=== PATIENT | female | born 1995 | race Caucasian/White ===

== ENCOUNTER 2017-01-14 16:40 | Outpatient (CLI) | payer OTHER ==
[2017-01-14] MEDS ORDERED: ACETAMINOPHEN 325 MG TAB PO PRN (17:45)
[2017-01-14] MEDS ORDERED: CYCLOBENZAPRINE HCL 10 MG TAB PO ONE (18:00)
[2017-01-14 18:45] LABS: URINE APPEARANCE CLEAR (CLEAR); URINE BILIRUBIN NEG (NEG); URINE COLOR YELLOW; URINE EPITHELIAL CELL AUTO >30 /lpf (0-5); URINE NITRITE NEG (NEG); URINE SPECIFIC GRAVITY 1.017 (1.000-1.030); UROBILINOGEN NEG (NEG); ZZUR CULT IF INDIC CLEAN CATCH NO
[2017-01-14 18:49] LABS: MANUAL MICROSCOPIC REQUIRED? NO; REVIEW REQ? NO
[2017-01-14] MEDS ORDERED: CYCL5TAB PO (18:58)
--- NOTE | 2017-01-14 19:03 | Discharge Instructions ---
Discharge Instructions Date of Service Jan 14, 2017. Admission Reason for Admission: Check Pre Term Labor Discharge Discharge Diagnosis / Problem: Back pain Discharge Goals Goal(s): Continuing OB care Activity Recommendations Activity Limitations: as noted below Lifting Limitations: no more than 25 pounds May Resume Sexual Activity: after follow-up appointment Shower/Bathe: no limitations Driving or Machine Use: resume 1 day after discharge ACTIVITY RECOMMENDATIONS: See Labor Sheet. SPECIAL CARE INSTRUCTIONS: Call Doctor if: * Regular contractions every 5 minutes or greater than 5 contractions in one hour. * Bleeding * Water breaks or is leaking * Decreased movement * Fever >100.4 degrees F * Pain not relieved by routine measures or pain medication ordered. FOLLOW UP VISIT: Return to Labor and Delivery on for /call for appointment time . Follow-up Visit with: When: . Current Hospital Diet Patient's current hospital diet: Regular OB Diet Discharge Diet Recommended Diet: Regular Diet Pending Studies Studies pending at discharge: no Work Instructions Return To Work: 1 day Medical Emergencies . Who to Call and When: Medical Emergencies: If at any time you feel your situation is an emergency, please call 911 immediately. . Non-Emergent Contact Non-Emergency issues call your: Surgeon Call Non-Emergent contact if: temperature is above 100.5, your pain is not controlled . . "Provider Documentation" section prepared by Luis F Berry. . VTE Core Measure Inpt VTE Proph given/why not?: Treatment not indicated
[2017-03-08] MEDS ORDERED: MTR600X PO (07:48)
[2017-03-08] MEDS ORDERED: OXYC-57 PO (07:48)
== END 2017-01-14 19:10 | disposition home or self-care (01) ==
LOC: C.LD 16:40 → C.OPB 16:40
PROVIDERS: ATTEND Obstetrics & Gynecology
DX: O99.89 Other specified diseases and conditions complicating pregnancy, childbirth and the puerperium (principal); M54.9 Dorsalgia, unspecified; Z3A.32 32 weeks gestation of pregnancy

== ENCOUNTER 2017-03-05 07:09 | Inpatient (IN) | payer OTHER ==
[~2017-03-05] VITALS: Ht 144.8 cm; Wt 91.4 kg
[2017-03-05] MEDS ORDERED: LACTATED RINGER'S 1000ML 1,000 ML IV PRN (07:27)
[2017-03-05] MEDS ORDERED: LACTATED RINGER'S 1000ML 500 ML IV PRN ×2 (07:27→11:23)
[2017-03-05] MEDS ORDERED: OXYTOCIN 30 UNITS/500ML NSS IV PRN (07:30)
[2017-03-05 07:54] LABS: HEMATOCRIT 34.5 % (37-47); MEAN CELL VOLUME 84.4 fL (80-100); MEAN CORPUSCULAR HEMOGLOBIN 28.4 pg (25-34); MEAN CORPUSCULAR HGB CONC 33.6 g/dl (32-36); MEAN PLATELET VOLUME 10.9 fL (7.4-10.4); PLATELET COUNT 330 K/uL (130-400); RED BLOOD COUNT 4.09 M/uL (4.2-5.4); WHITE BLOOD COUNT 12.59 K/uL (4.8-10.8)
[2017-03-05 08:00] VITALS: Ht 144.8 cm; Wt 91.4 kg
[2017-03-05] MEDS ORDERED: ALBU18002 (09:23)
[2017-03-05] MEDS ORDERED: PRENTAB26 PO (09:23)
[2017-03-05] MEDS ORDERED: FLOVENT (09:23)
[2017-03-05] MEDS ORDERED: EpHEDrine SULFATE INJ 50 MG/ML AMP ONE (10:01)
[2017-03-05] MEDS ORDERED: FENTANYL 2MCG/ML ROPIV 1.25MG/ML 100ML BAG EPI ONE (10:01)
[2017-03-05] MEDS ORDERED: FENTANYL CITRATE INJ 50 MCG/1 ML 2 ML VIAL ONE ×2 (10:01→17:55)
[2017-03-05] MEDS ORDERED: BUPIVACAINE 0.25% 30 ML VIAL ONE (10:01)
[2017-03-05] MEDS: LACTATED RINGER'S 1000ML 1,000 ML IV SCH ×3 (10:46→12:55)
[2017-03-05] MEDS ORDERED: NALOXONE HCL INJ 1 MG in SODIUM CHLORIDE 0.9% 1000ML 1,000 ML IV PRN (11:23)
[2017-03-05] MEDS ORDERED: FENTANYL 2MCG/ML ROPIV 1.25MG/ML 100ML BAG EPI PRN (11:30)
[2017-03-05] MEDS ORDERED: EpHEDrine SULFATE INJ 50 MG/ML AMP IV PRN (11:30)
[2017-03-05] MEDS ORDERED: PROMETHAZINE HCL INJ 25 MG in SODIUM CHLORIDE 0.9% 50ML 50 ML IV PRN (11:30)
[2017-03-05] MEDS ORDERED: NALOXONE HCL INJ 0.4 MG/1 ML VIAL/CARP IV PRN (11:30)
[2017-03-05] MEDS ORDERED: ONDANSETRON INJ 2 MG/ML 2 ML VIAL IV PRN ×2 (11:30→19:00)
[2017-03-05] MEDS ORDERED: NALBUPHINE HCL INJ 10 MG/ML AMP IV PRN (11:30)
[2017-03-05] MEDS ORDERED: DiphenhydrAMINE HCL 50 MG/ML VIAL IV PRN ×2 (11:30→19:00)
[2017-03-05] MEDS ORDERED: TERBUTALINE SULFATE 1 MG/ML VIAL ONE (12:29)
[2017-03-05] MEDS ORDERED: TERBUTALINE SULFATE 1 MG/ML VIAL SQ STA (12:36)
[2017-03-05] MEDS ORDERED: CALCIUM CARBONATE 500 MG CHEWABLE PO PRN (13:30)
[2017-03-05] MEDS ORDERED: LACTATED RINGER'S 1000ML 1,000 ML IV SCH ×3 (15:59→22:45)
[2017-03-05] MEDS ORDERED: CITRIC ACID/SODIUM CITRATE 15 ML UDC PO ONE (16:15)
[2017-03-05] MEDS ORDERED: CEFAZOLIN IV 3,000 MG in DEXTROSE 5% 50ML 50 ML IV SCH (16:15)
--- NOTE | 2017-03-05 16:32 | HISTORY & PHYSICAL EXAMINATION ---
DATE OF ADMISSION: 03/05/2017 CHIEF COMPLAINT: Spontaneous rupture of membranes. HISTORY OF PRESENT ILLNESS: The patient is a 22-year-old 1 at 39 weeks and 3 days gestation, who presented to labor and delivery on the morning of 03/05/2017 with rupture of membranes that occurred at 05:00 a.m. with a large gush of fluid. On arrival, she was grossly ruptured. She was found to be 1 cm, 50% effaced, and -3 station. Contractions were irregular at that time. Oxytocin per protocol was begun for labor augmentation. She received an epidural for anesthesia. heart tones had a deceleration for approximately 9-10 minutes. Oxytocin infusion was stopped and the patient was repositioned, O2 administered, internal monitors were placed and heart tones recovered to baseline of 140 with moderate variability. Induction continued once FHTs remained reassuring. A second deceleration occurred at around 03:45 p.m. for approximately 4 minutes. Again, oxytocin was stopped, oxygen was administered and the patient repositioned. heart tones recovered again to 150s with moderate variability, positive acceleration with scalp stim. The patient was found to be 4-5 cm, 90% effaced, and high. Discussed with the patient that we could either proceed with the labor or proceed with a primary section due to failure to progress and intolerance to labor. The patient was agreeable to proceed with primary . Risks, benefits and alternatives were discussed and informed consent was obtained. PAST MEDICAL HISTORY: The patient has a history of asthma. PAST SURGICAL HISTORY: She had tonsils and adenoids removed at age of 11. SOCIAL HISTORY: She denies tobacco, alcohol or drug use. MEDICATIONS: vitamins, ProAir inhaler as needed and Flovent inhaler daily. ALLERGIES: No known drug allergies. SHE IS ALLERGIC TO LATEX. LABS: Blood type is A positive, group B strep negative, rubella immune, hepatitis B surface antigen negative, and RPR nonreactive. PHYSICAL EXAMINATION: VITAL SIGNS: Blood pressure is 131/81, heart rate 98, respiration rate 20, and temperature 97.9. GENERAL: The patient is awake, alert and oriented x3. She is in no acute distress. HEART: Regular rate and rhythm. LUNGS: Clear to auscultation bilaterally. ABDOMEN: Gravid uterus. Bowel sounds present x4. EXTREMITIES: No clubbing, cyanosis or calf tenderness. VAGINAL: She is currently 4-5 cm, 90% effaced and -3. heart tones are at category 1 currently. ASSESSMENT AND PLAN: A 22-year-old 1, para 0 at 39 weeks and 3 days gestation with failure to progress and intolerance to labor. Will proceed with a primary section. Risks, benefits and alternatives were discussed and informed consent was signed. [facility]
[2017-03-05] MEDS ORDERED: MORPHINE SULFATE PF 2MG/2ML SYR ONE (17:56)
[2017-03-05] MEDS ORDERED: OXYTOCIN INJ 10 UNITS/ML VIAL ONE ×2 (17:57→18:32)
[2017-03-05] MEDS ORDERED: LIDOCAINE/EPINEPHRINE 2% 1:200,000 20 ML SDV ONE (17:57)
[2017-03-05] MEDS ORDERED: ONDANSETRON INJ 2 MG/ML 2 ML VIAL ONE ×2 (17:57→19:49)
[2017-03-05] MEDS ORDERED: KETOROLAC TROMETHAMINE 30 MG/ML VIAL ONE (18:32)
[2017-03-05] MEDS ORDERED: PHENYLEPHRINE 100MCG/ML 5ML SYR ONE (18:32)
[2017-03-05] MEDS ORDERED: SENNA 8.6 MG TAB PO PRN (19:00)
[2017-03-05] MEDS ORDERED: BENZOCAINE 20% AER SPR 82.5 GM CAN EXT PRN (19:00)
[2017-03-05] MEDS ORDERED: LANOLIN OINT EXT PRN ×2 (19:00)
[2017-03-05] MEDS ORDERED: HYDROCORTISONE ACETATE 25 MG SUPP PR PRN (19:00)
[2017-03-05] MEDS ORDERED: DIPHTHERIA/TETANUS/PERTUSSIS 0.5 ML SYR/VIAL IM. ONE (19:00)
[2017-03-05] MEDS ORDERED: MAGNESIUM HYDROXIDE SUSP 30 ML UDC PO PRN (19:00)
[2017-03-05] MEDS ORDERED: SUPERCREAM 0.870 % 15GM JAR EXT PRN (19:00)
--- NOTE | 2017-03-05 19:02 | [facility] Post Operative Brief Note ---
Immediate Operative Summary Operative Date Mar 05, 2017. Pre-Operative Diagnosis Term , Failure to progress and intolerance to labor Post-Operative Diagnosis same with delivery of living male child at 1804 Procedure(s) Performed Primary Low Transverse Caesarean Section Surgeon Dr. Gino Waggoner Kinesiologist Surgeon(s) [facility] Estimated Blood Loss 400 Findings Patient delivered a viable male infant at 1804 on 03/05/17 via primary C/S in the OP position secondary to failure to progress and intolerance to labor. Nuchal cord and cord around the body noted at delivery. APGARs of 8 at 1 minute and 9 at 5 minutes. Cord blood was obtained. An intact placenta with a 3 VC delivered manually at 1805 and sent to pathology. Grossly normal uterus and bilateral tubes and ovaries noted. Both patient and baby tolerated the surgery well and were sent to recovery with stable vital signs. Fluids (cc crystalloids) 1500 Specimens a. placenta-exam b. cord blood specimen Drains Gauthier to gravity Anesthesia Epidural Complication(s) None Disposition L&D
[2017-03-05] MEDS: OXYTOCIN INJ 30 UNITS in LACTATED RINGER'S 1000ML 1,000 ML IV SCH (19:32)
--- NOTE | 2017-03-05 19:32 | Anesthesia Procedure Note ---
Anesthesia Epidural Removal Nt Date & Time Mar 05, 2017 at 19:32 Vital Signs Pain Intensity: 0.0 Notes Mental Status: alert / awake / arousable, participated in evaluation Nausea / Vomiting: adequately controlled Pain: adequately controlled Airway Patency, RR, SpO2: stable & adequate BP & HR: stable & adequate Hydration State: stable & adequate Neuraxial Anesthesia: was administered Anesthetic Complications: no major complications apparent, pt satisfied with anesthetic care Epidural: removed without complications, with tip intact
[2017-03-05] MEDS ORDERED: CONTINUE MEDICATION SCH (19:43)
[2017-03-05] MEDS ORDERED: MoRPHine SULFATE PF 1 MG/ML 10 ML AMP/VIAL EPI PRN (19:45)
[2017-03-05] MEDS ORDERED: DC INTRASPINAL MORPHINE PRN (19:45)
[2017-03-05] MEDS ORDERED: MoRPHine SULFATE 2 MG/ML CARP IV PRN (19:45)
[2017-03-05] MEDS ORDERED: NO NARCOTICS OR SEDATIVES SCH (19:45)
[2017-03-05] MEDS ORDERED: KETOROLAC TROMETHAMINE 30 MG/ML VIAL IV. PRN (19:45)
[2017-03-05] MEDS ORDERED: MEPERIDINE HCL 25 MG/ML CARP IV PRN (19:45)
[2017-03-05] MEDS ORDERED: NURSING VERBAL MED ORDER ONE ×2 (20:00→22:30)
[2017-03-05] MEDS: DOCUSATE SODIUM 100 MG CAP PO SCH (20:08)
--- NOTE | 2017-03-05 20:27 | Anesthesiology Progress Note ---
Anesthesia Post Op Note Date & Time Mar 05, 2017 at 20:26 Vital Signs Pain Intensity: 0.0 Notes Mental Status: alert / awake / arousable, participated in evaluation Pt Amnestic to Procedure: Yes Nausea / Vomiting: adequately controlled Pain: adequately controlled Airway Patency, RR, SpO2: stable & adequate BP & HR: stable & adequate Hydration State: stable & adequate Neuraxial Anesthesia: was administered, sensory block is resolving Anesthetic Complications: no major complications apparent
--- NOTE | 2017-03-05 20:40 | OPERATIVE REPORT ---
DATE OF OPERATION: 03/05/2017 PREOPERATIVE DIAGNOSES: 1. Term intrauterine at 39 weeks and 3 days gestation. 2. Failure to progress. 3. intolerance to labor, remote from delivery. POSTOPERATIVE DIAGNOSES: Same. OPERATIVE PROCEDURE: Primary low transverse section. SURGEON: Dr. Waggoner. INDUSTRIAL CONTROLLER: Marielos Nieto, surgical garment assembler. ANESTHESIA: Epidural bolus. ESTIMATED BLOOD LOSS: 400 mL. IV FLUIDS: 1500 mL crystalloid. URINE OUTPUT: 700 mL clear yellow urine. SPECIMENS: Placenta and cord blood to pathology. DRAINS: Gauthier to gravity. COMPLICATIONS: None. DISPOSITION: To labor and delivery. OPERATIVE FINDINGS: The patient delivered a viable male infant at 1804 on 03/05/2017 via primary section in the occiput posterior position secondary to failure to progress and intolerance to labor, remote from delivery. Nuchal cord and cord around the body was noted at delivery. Apgars were 8 at 1 minute and 9 at 5 minutes. Please see supervisor dehydrogenation notes for further baby assessment. Cord blood was then obtained and intact placenta with 3-vessel cord was delivered manually at 1805 and sent to pathology. Grossly normal uterus and bilateral tubes and ovaries were noted. Both patient and baby tolerated the surgery well and were sent to recovery with stable vital signs. INDICATIONS FOR PROCEDURE: The patient is a 22-year-old 1, para 0 at 39 weeks and 3 days gestation who was admitted to labor and delivery on the morning of 03/05/2017 with spontaneous rupture of membranes. On admission, she was found to be 1 cm, 50% effaced, and -3 station. Oxytocin per protocol was begun for labor augmentation. She received an epidural for anesthesia. The baby was noted to have a prolonged deceleration for 10 minutes with good recovery and moderate variability. Labor was restarted after heart tones were reassuring. She continued to make cervical change. She was found to be 4-5 cm, 90% effaced and -3 station at approximately 4 p.m. She had a second prolonged deceleration for 4 minutes, again with good recovery. She remained 4-5 cm without adequate change. Discussed with the patient her options of proceeding with primary section secondary to intolerance to labor and failure to progress or proceed with labor. After a long discussion, the patient and family have decided that they would like to proceed with a primary section while the baby is reassuring and does not want to risk any further decelerations. Risks, benefits and alternatives were discussed with the patient and informed consent was obtained. OPERATIVE PROCEDURE IN DETAIL: The patient was taken to the operating room where her epidural was bolused. She was immediately placed in dorsal supine position with a left lateral tilt and was prepped and draped in a manner appropriate for the procedure. Once the anesthesia was found to be adequate, a Pfannenstiel skin incision was made 2 fingerbreadths above the pubic symphysis and was carried down through to a layer of the rectus fascia. Fascia was nicked in the midline and extended bilaterally with curved Omalley scissors and electrocautery. The superior aspect of the fascial incision was grasped with Alexandra clamps, elevated, and the rectus muscles were dissected off with the use of the curved Omalley scissors and electrocautery. Likewise, the inferior aspect of the fascial incision was grasped with Alexandra clamps, elevated, and the rectus muscles were dissected off with the use of the curved Omalley scissors and electrocautery. The rectus muscles were in the midline. Peritoneum was entered bluntly and extended cephalocaudally with gentle traction. An Alexys retractor was placed within the abdomen. The Wartburg blade was placed within the abdomen as well. The vesicouterine peritoneum was identified and a bladder flap was created with Metzenbaum scissors and digital traction. The bladder flap was reincorporated beneath the Robert blade. A transverse incision was made on the uterus and extended bilaterally with digital traction. The baby was noted to be in occiput posterior position. The baby's head was identified and delivered through the incision along with the rest of the body. Nuchal cord x1 was reduced along with the cord around the body. The baby was bulb suctioned at delivery. Cord was clamped x2. The baby was immediately handed to an awaiting supervisor dehydrogenation for further evaluation and management. Cord blood was then obtained and an intact placenta with 3-vessel cord was delivered manually and sent to pathology. The uterus was then exteriorized and wrapped in a moist laparotomy sponge. The uterus was then cleared of any blood clots and debris with the laparotomy sponge. The uterine incision was then grasped with ringed forceps at 4 quadrants and was closed with 0 Vicryl suture in continuous locking fashion. A second 0 Vicryl suture was used in imbricating fashion to ensure hemostasis. Any residual bleeding was suture ligated with 0 Vicryl suture in a [id number] interrupted fashion. Excellent hemostasis was noted. The posterior cul-de-sac was then irrigated with warm saline solution. The uterus was then placed back within its normal anatomic position within the abdomen. The uterine incision was noted to be hemostatic once again. The anterior cul-de-sac was irrigated. The bladder flap was reapproximated to the lower uterine segment with 3-0 Vicryl suture in a continuous running fashion. The Alexys retractor and all instruments were then removed from the abdomen. The peritoneum was then grasped with Mary clamps x4 and was closed with 2-0 Vicryl suture in continuous running fashion. Rectus muscles were reapproximated with 0 Vicryl suture in a [id number] interrupted fashion. Fascia was then closed with 0 Vicryl suture in continuous running fashion. Subcutaneous tissue was reapproximated with 2-0 Vicryl suture in an interrupted fashion. Skin was closed with buddy. Excellent hemostasis was noted through all tissue layers. Both patient and baby tolerated the surgery well and were in recovery with stable vital signs. I attest to the content of the Intraoperative Record and any orders documented therein. Any exception s are noted below.
[2017-03-05 21:30] VITALS: BP 130/90; PULSE 84; TEMP 36.7; O2SAT 100
[2017-03-05] MEDS: SIMETHICONE 80 MG CHEW PO SCH (21:30)
[2017-03-05 22:30] VITALS: BP 109/73; PULSE 83; O2SAT 99
[2017-03-05 23:30] VITALS: BP 123/78; PULSE 78; TEMP 36.6; O2SAT 100
[2017-03-06] VITALS (16 sets, daily range): BP systolic 114–134; BP diastolic 72–88; PULSE 82–88; TEMP 36.4–36.8; O2SAT 95–100
[2017-03-06] MEDS: OXYTOCIN INJ 30 UNITS in LACTATED RINGER'S 1000ML 1,000 ML IV SCH (03:47)
[2017-03-06 09:21] LABS: BASO % 0.2 %; BASO ABS # 0.03 K/uL (0-0.2); COMPLETE YES; EOS % 0.2 %; IG% 0.5 %; LYMPH % 21.7 %; LYMPH ABS # 2.77 K/uL (1.2-3.4); MEAN CELL VOLUME 84.5 fL (80-100); MEAN CORPUSCULAR HEMOGLOBIN 27.7 pg (25-34); MEAN CORPUSCULAR HGB CONC 32.8 g/dl (32-36); MEAN PLATELET VOLUME 11.8 fL (7.4-10.4); MONO % 5.6 %; NEUT % 71.8 %; PLATELET COUNT 250 K/uL (130-400); RED BLOOD COUNT 3.43 M/uL (4.2-5.4); WHITE BLOOD COUNT 12.75 K/uL (4.8-10.8)
[2017-03-06] MEDS: PRENATAL VITAMIN TAB PO SCH (09:27)
[2017-03-06] MEDS: FERROUS SULFATE 325 MG TAB PO SCH (09:27)
[2017-03-06] MEDS: SIMETHICONE 80 MG CHEW PO SCH ×3 (09:27→16:53)
[2017-03-06] MEDS: DOCUSATE SODIUM 100 MG CAP PO SCH (09:27)
--- NOTE | 2017-03-06 09:53 | Surgery Progress Note ---
Surgery Progress Note Date of Service Mar 06, 2017. Subjective Post OP Day: 1 + ambulating, + pain controlled Objective Vital Signs: Date Time Temp Pulse Resp B/P (MAP) Pulse Ox O2 Delivery O2 Flow Rate FiO2 03/06/17 08:30 20 99 03/06/17 07:45 36.6 88 18 129/75 (93) 100 Room Air 03/06/17 07:45 100 Room Air 03/06/17 07:30 18 100 03/06/17 06:30 16 98 03/06/17 05:30 18 98 03/06/17 04:30 16 97 03/06/17 03:40 18 95 03/06/17 03:40 36.8 86 18 134/88 (103) 95 Room Air 03/06/17 02:29 18 99 03/06/17 01:30 18 96 03/06/17 00:30 18 97 03/05/17 23:30 18 100 03/05/17 23:30 36.6 78 18 123/78 (93) 100 Room Air 03/05/17 23:30 100 Room Air 03/05/17 22:30 18 99 03/05/17 22:30 83 18 109/73 (85) 99 Room Air 03/05/17 21:30 36.7 84 18 130/90 (103) 100 Room Air 03/05/17 21:30 100 Room Air 03/05/17 21:30 18 100 Abdomen: non tender, non distended, soft Incision(s): clean, dry, intact Extremities: non-tender, normal inspection, no pedal edema, no calf tenderness Laboratory Results: Results Past 24 Hours Test 03/06/17 07:55 Range/Units White Blood Count 12.75 4.8-10.8 K/uL Red Blood Count 3.43 4.2-5.4 M/uL Hemoglobin 9.5 12.0-16.0 g/dL Hematocrit 29.0 37-47 % Mean Corpuscular Volume 84.5 80-100 fL Mean Corpuscular Hemoglobin 27.7 25-34 pg Mean Corpuscular Hemoglobin Concent 32.8 32-36 g/dl Platelet Count 250 130-400 K/uL Mean Platelet Volume 11.8 7.4-10.4 fL Neutrophils (%) (Auto) 71.8 % Lymphocytes (%) (Auto) 21.7 % Monocytes (%) (Auto) 5.6 % Eosinophils (%) (Auto) 0.2 % Basophils (%) (Auto) 0.2 % Neutrophils # (Auto) 9.16 1.4-6.5 K/uL Lymphocytes # (Auto) 2.77 1.2-3.4 K/uL Monocytes # (Auto) 0.71 0.11-0.59 K/uL Eosinophils # (Auto) 0.02 0-0.5 K/uL Basophils # (Auto) 0.03 0-0.2 K/uL RDW Standard Deviation 45.5 36.4-46.3 fL RDW Coefficient of Variation 14.7 11.5-14.5 % Immature Granulocyte % (Auto) 0.5 % Immature Granulocyte # (Auto) 0.06 0.00-0.02 K/uL Diagnostic Interpretation: POD#1 advance care and diet Assessment & Plan regular diet
[2017-03-06] MEDS ORDERED: KETOROLAC TROMETHAMINE 30 MG/ML VIAL IV. PRN (12:00)
[2017-03-06] MEDS ORDERED: MEPERIDINE HCL 50 MG/ML CARP IV PRN ×2 (12:00)
[2017-03-06] MEDS ORDERED: OXYCODONE/ACETAMINOPHEN 5-325 TAB PO PRN (12:00)
[2017-03-06] MEDS: OXYCODONE/ACETAMINOPHEN 5-325 TAB PO PRN ×3 (15:07→22:45)
[2017-03-06] MEDS: IBUPROFEN 600 MG TAB PO PRN ×2 (16:17→22:44)
[2017-03-06] MEDS ORDERED: BISACODYL 5 MG TABEC PO ONE (21:00)
[2017-03-07] MEDS: OXYCODONE/ACETAMINOPHEN 5-325 TAB PO PRN ×5 (03:26→22:29)
[2017-03-07] MEDS: IBUPROFEN 600 MG TAB PO PRN ×5 (03:26→22:28)
[2017-03-07 06:13] LABS: HEMATOCRIT 27.6 % (37-47)
[2017-03-07] MEDS: DOCUSATE SODIUM 100 MG CAP PO SCH ×2 (08:00→19:47)
[2017-03-07] MEDS: FERROUS SULFATE 325 MG TAB PO SCH (08:00)
[2017-03-07] MEDS ORDERED: BISACODYL 10 MG SUPP PR PRN (08:00)
[2017-03-07] MEDS: PRENATAL VITAMIN TAB PO SCH (08:00)
[2017-03-07] MEDS: SIMETHICONE 80 MG CHEW PO SCH ×4 (08:01→19:47)
[2017-03-07 08:15] VITALS: BP 133/82; PULSE 98; TEMP 36.4
--- NOTE | 2017-03-07 10:41 | Surgery Progress Note ---
Surgery Progress Note Date of Service Mar 07, 2017. Subjective Post OP Day: 2 + ambulating (+ve ), + flatus, + pain controlled, + diet (Tolerating PO ), No complaints, No chest pain, No SOB, No bowel movement, No using VP GENETIC, No nausea, No vomiting Objective Vital Signs: Date Time Temp Pulse Resp B/P (MAP) Pulse Ox O2 Delivery O2 Flow Rate FiO2 03/07/17 08:15 36.4 98 20 133/82 (99) 03/07/17 08:15 Room Air 03/06/17 23:45 98 Room Air 03/06/17 23:45 36.4 82 16 118/80 (93) 98 Room Air 03/06/17 16:00 Room Air 03/06/17 16:00 36.7 88 18 122/78 (93) Room Air 03/06/17 12:00 36.8 85 20 114/72 (86) 98 Room Air 03/06/17 11:30 18 98 General Appearance: WD/WN, no apparent distress Head: normocephalic, atraumatic Neck: supple, no adenopathy, thyroid normal, no JVD, no carotid bruits, trachea midline Respiratory/Chest: chest non-tender, lungs clear, normal breath sounds, no respiratory distress, no accessory muscle use Cardiovascular: regular rate, rhythm, no edema, no gallop, no JVD, no murmur Abdomen: normal bowel sounds, non tender, non distended, soft, no organomegaly , no pulsatile mass Incision(s): clean, dry, intact, no erythema, no drainage Extremities: normal range of motion, non-tender, normal inspection, no pedal edema, no calf tenderness, normal capillary refill, pelvis stable Laboratory Results: Results Past 24 Hours Test 03/07/17 05:55 Range/Units Hemoglobin 9.0 12.0-16.0 g/dL Hematocrit 27.6 37-47 % Assessment & Plan C/sec Day #2 pt doing well anticipate dish tomorrow
[2017-03-07 16:50] VITALS: BP 137/89; PULSE 97; TEMP 36.4
[2017-03-07 20:00] VITALS: BP 135/84; PULSE 100; TEMP 36.7; O2SAT 97
[2017-03-07 23:30] VITALS: BP 150/97; PULSE 99; TEMP 36.6
[2017-03-08 00:15] VITALS: BP 137/92; PULSE 92
[2017-03-08] MEDS: OXYCODONE/ACETAMINOPHEN 5-325 TAB PO PRN ×2 (06:32→13:02)
[2017-03-08] MEDS ORDERED: OXYC-57 PO (07:48)
[2017-03-08] MEDS ORDERED: MTR600X PO (07:48)
--- NOTE | 2017-03-08 07:48 | Discharge Instructions ---
Discharge Instructions Date of Service Mar 08, 2017. Admission Reason for Admission: LABOR Discharge Discharge Diagnosis / Problem: Primary section Discharge Goals Goal(s): Routine recovery after Activity Recommendations Activity Limitations: per Instructions/Follow-up section . Instructions / Follow-Up Instructions / Follow-Up ACTIVITY RECOMMENDATIONS: * Gradual return to full activity over the next 2-3 weeks. * No lifting - nothing heavier than baby over the next 2-3 weeks. * Do not engage in vigorous exercise, sexual activity or sports until cleared by your physician. * Do not drive or operate any motorized equipment until cleared by your physician. * You may shower/bathe daily. BREAST CARE: If you are not breast feeding: * Wear a supportive bra 24 hours a day for one to two weeks. * Avoid stimulating your breasts and nipples as much as possible during the first few weeks after delivery. * When taking a shower, have the warm water hit your back, not breasts. * When your breasts feel full, apply ice packs. Usually three to four times a day helps ease the discomfort. * Take a mild pain medication (Tylenol/Motrin) when you are uncomfortable. If breast feeding: * Use breast milk to lubricate nipples. Lansinoh cream may be used for sore nipples. You do not need to remove cream prior to breast feeding. If using a different brand of cream, check the label for directions regarding removal of cream prior to nursing. * Wear a supportive bra. * If having problems with breasts or breast feeding, call a design and sales consultant or your health care provider. OVER THE COUNTER MEDICATION: * For discomfort or pain, you may use Acetaminophen (Tylenol), Ibuprofen (Advil ), or Naproxen (Aleve) following the package directions. * For constipation you may use Colace following the package directions. SPECIAL CARE INSTRUCTIONS: When you are discharged from the hospital, it is important for you to follow the instructions listed below: * During the first week at home, you should be able to care for yourself and your baby. In addition, the usual light household activities are encouraged. * Limit your activities to the way you feel. Do not try to clean the house or move furniture. Be sensible. * If you actively engage in sports and have done so up until the time of your delivery, you may resume these activities as soon as you feel able. This may take up to one month or even longer. Use good judgment. * Continue to take your vitamins for at least six weeks after the of your baby. * Your diet need not be limited unless you were on a special diet before your delivery. Breast-feeding mothers need around 2500 calories per day and at least 64-80 ounces of fluid per day (8 to 10 glasses). * You should eat foods from the four major food groups. Crash diets or fad diets are to be avoided. Eating lean meats, fresh fruits and vegetables, low-fat dairy products, high fiber foods and a regular exercise program, will help you get back to your pre- weight without putting your health at risk. * Constipation is sometimes a problem after delivery. Take a mild laxative as needed. If breast feeding, Milk of Magnesia is acceptable to use. You may use a suppository or Fleets enema if no episiotomy. * A daily shower or tub bath is suggested. Be sure to thoroughly and gently dry the perineum. * A bloody vaginal discharge will usually continue until around four weeks post . A small amount of bleeding may continue for as long as six weeks. Vaginal discharge changes from the bright red bleeding after delivery to pink then brownish and finally yellowish-pink before becoming white and disappearing. * Bleeding may increase with activity. Your first period may come in 4-8 weeks. If you are breast feeding, your period may be delayed even longer. * [place] (sex) can begin whenever both you and your partner feel comfortable and do not have any form of genital infection. It is recommended that you wait at least six weeks for internal and external healing to occur. If you have questions, please talk to your health care practitioner. A condom should be used to prevent infection and . * Foreplay, gentle intercourse and lubrication is very important the first several times to prevent pain. A water-based lubricant such as K-Y jelly or Astroglide may be used. * Tampons and/or Douching should be avoided until after six weeks check-up. * If you have RH negative blood and your baby is RH positive, you will receive RHOGAM by injection prior to discharge. The nurse will give you a card to keep with you that has the date and place that you received RHOGAM after delivery. * During your care, you had a Rubella screen done to check for the presence of rubella antibodies in your blood. If your test was negative, you will receive a Rubella vaccine prior to discharge. This vaccine may cause a fever, soreness at the injection site and flu-like symptoms. If these symptoms persist, notify your health care practitioner. is not advised for three months after a Rubella vaccine. * Verbalizes understanding of car seat law as reviewed with patient nursing. * Car Seat hand-out given and reviewed with patient by nursing. * Shaken baby information reviewed with patient by nursing. Call you doctor if: * Heavy bleeding (saturating several pads an hour) or passing clots the size of your fist. * A fever >101 degrees F (38.3 degrees C) on two occasions four hours apart and /or chills. * Unusual pain in the pelvic or vaginal areas. Pain should improve each day . * Call the doctor for any increased redness, drainage or swelling around the incision and any pain unrelieved by prescribed pain medication. * Any signs or symptoms of phlebitis (possible blood clots forming in the veins ): leg pain, warm, red or swollen area on leg. * "Baby Blues" lasting longer than two weeks. If you have any questions or concerns, call your health care practitioner at . FOLLOW-UP VISIT: * Incision check (staple removal) in 1 week. Please call doctor's office at to set up appointment. * Please call the office at to schedule a 6 week examination. It is important you keep this appointment. * It is important for you to make arrangements for either yearly or twice yearly check-ups thereafter. Current Hospital Diet Patient's current hospital diet: Regular OB Diet Discharge Diet Recommended Diet: Regular OB Diet Procedures Procedures Performed: Primary Low Transverse Caesarean Section Pending Studies Studies pending at discharge: no Medical Emergencies . Who to Call and When: Medical Emergencies: If at any time you feel your situation is an emergency, please call [phone] immediately. . Non-Emergent Contact Non-Emergency issues call your: Primary Care Provider, Early Childhood Educator Aide . . "Provider Documentation" section prepared by Gino Waggoner. . VTE Core Measure Inpt VTE Proph given/why not?: Treatment not indicated
[2017-03-08] MEDS: SIMETHICONE 80 MG CHEW PO SCH ×2 (07:50→11:42)
[2017-03-08] MEDS: PRENATAL VITAMIN TAB PO SCH (07:50)
[2017-03-08] MEDS: DOCUSATE SODIUM 100 MG CAP PO SCH (07:50)
[2017-03-08] MEDS: FERROUS SULFATE 325 MG TAB PO SCH (07:50)
--- NOTE | 2017-03-08 07:51 | OB/GYN Progress Note ---
SENIOR SERVICE TECHNICIAN Progress Note Date of Service Mar 08, 2017. Subjective conversation w/ patient, physical exam Ambulation: ambulating normally Voiding: no voiding problems Passing Gas: Yes Diet Tolerance: Regular Diet Lochia: Small Feeding Type: Breast Feeding Pain: 06/19 Notes: Doing well, no concerns. Pain well controlled. Tolerating regular diet, +flatus , +BM. Ambulating without difficulty. Objective Vital Signs Date Time Temp Pulse Resp B/P (MAP) Pulse Ox O2 Delivery O2 Flow Rate FiO2 03/08/17 00:15 92 137/92 (107) 03/07/17 23:30 36.6 99 18 150/97 (114) Room Air 03/07/17 23:30 Room Air 03/07/17 20:00 36.7 100 18 135/84 (101) 97 Room Air 03/07/17 16:50 36.4 97 24 137/89 (105) 03/07/17 08:15 36.4 98 20 133/82 (99) 03/07/17 08:15 Room Air Physical Exam General Appearance: WELL-APPEARING Respiratory/Chest: chest non-tender, lungs clear Cardiovascular: regular rate, rhythm Abdomen: normal bowel sounds, soft Fundus: Firm Incision Description: Clean, Dry & Intact Extremities: normal range of motion, non-tender, no calf tenderness Assessment and Plan Post-Op Day Number: 3 Continue Routine Care: -D/C home today -F/U in 1 week.
[2017-03-08 08:00] VITALS: BP 126/84; PULSE 82; TEMP 36.8
[2017-03-08] MEDS: IBUPROFEN 600 MG TAB PO PRN (13:01)
[2017-03-08 13:33] VITALS: BP_DIAS 84; PULSE 82; TEMP 36.8
== END 2017-03-08 13:38 | disposition home or self-care (01) | DRG 766 ==
LOC: C.LD 07:09 → C.OPB 07:09 → C.LD 07:29 → C.OPB 07:29 → C.MS4N 21:54 → C.OBG 03-06 20:04
PROVIDERS: ADMIT Obstetrics & Gynecology; ATTEND Obstetrics & Gynecology
PROC: 10D00Z1 Extraction of Products of Conception, Low, Open Approach (ICD-10-PCS; principal; 2017-03-05 16:15)
DX: O62.1 Secondary uterine inertia (principal); O76 Abnormality in fetal heart rate and rhythm complicating labor and delivery; Z3A.39 39 weeks gestation of pregnancy; Z37.0 Single live birth